=== PATIENT | male | born 1970 | race Caucasian/White ===

== ENCOUNTER 2019-01-03 15:51 | Emergency (ER) | payer BC ==
--- NOTE | 2019-01-03 16:30 | CR ---
Clinical history: 48-year-old male with cough and history of "tuberculosis". Interpretation: PA lateral chest films unremarkable. Normal cardiac silhouette without cephalization of flow, signs of alveolar edema or dependent pleural fluid accumulation. No lung mass, hilar lymphadenopathy or focal lobar pneumonia. No atelectasis/collapse. No pleural reactive abnormalities particularly in the lung apices or signs of Ghon complex. Hypertrophic marginal spondylosis at the thoracolumbar juncture. No Pneumothorax.
--- NOTE | 2019-01-03 16:51 | EDM.PDOC ---
ED HPI GENERAL MEDICAL PROBLEM - General Chief Complaint: Respiratory Problem Stated Complaint: COPD RELATED PAIN? Time Seen by Provider: 01/03/19 16:30 Source of Information: Reports: Patient, RN, RN Notes Reviewed History Limitations: Reports: No Limitations - History of Present Illness INITIAL COMMENTS - FREE TEXT/NARRATIVE: Pt presents to ER from home with c/o left posterior lower chest wall/left flank pain x4 days. He denies cough, fever, chills, abdominal pain, nausea, or urinary symptoms. He does a lot of lifting and heavy labor which causes some back pain now and then, but nothing out of the ordinary recently. He admits to some occasional hypersensitivity of the skin the in area at times, but not currently. Denies rash. He reports Hx of TB which was treated, and Hx of COPD. He is a former smoker. Onset: Sudden Onset Date: 12/30/18 Duration: Intermittent, Recurring, Waxing/Waning Location: Reports: Chest (left posterior, lower) Quality: Reports: Sharp, Stabbing Severity: Severe Improves with: Reports: None Worsens with: Reports: Movement Associated Symptoms: Reports: No Other Symptoms Left Flank Pain Score (Numeric/FACES): 7 - Related Data Allergies Allergy/AdvReac Type Severity Reaction Status Date / Time No Known Allergies Allergy Verified 02/26/16 05:51 Home Meds: Home Meds . [No Known Home Meds] 10/08/14 [History] Past Medical History - Past Health History Medical/Surgical History: Denies Medical/Surgical History HEENT History: Reports: Impaired Vision Other HEENT History: WEARS CORRECTIVE LENSES Cardiovascular History: Reports: None Respiratory History: Reports: None Gastrointestinal History: Reports: Cirrhosis, GERD, Hepatitis, Other (See Below) Other Gastrointestinal History: DSYPHAGIA Genitourinary History: Reports: None Musculoskeletal History: Reports: Back Pain, Chronic Neurological History: Reports: Concussion Psychiatric History: Reports: Addiction Endocrine/Metabolic History: Reports: None Hematologic History: Reports: None Immunologic History: Reports: None Oncologic (Cancer) History: Reports: None Dermatologic History: Reports: None - Infectious Disease History Infectious Disease History: Reports: Chicken Pox, Hepatitis C - Past Surgical History GI Surgical History: Social & Family History - Family History Family Medical History: Noncontributory - Tobacco Use Smoking Status *Q: Never Smoker Tobacco Use Within Last Twelve Months: Cigarettes - Living Situation & Occupation Living situation: Reports: Occupation: Employed ED ROS GENERAL - Review of Systems Review Of Systems: ROS reveals no pertinent complaints other than HPI. ED EXAM, GENERAL - Physical Exam Exam: See Below Exam Limited By: No Limitations General Appearance: Alert, WD/WN, No Apparent Distress Nose: Normal Inspection Throat/Mouth: Normal Inspection, Normal Voice, No Airway Compromise Head: Atraumatic, Normocephalic Neck: Normal Inspection, Supple, Non-Tender, Full Range of Motion. No: Lymphadenopathy (L), Lymphadenopathy (R) Respiratory/Chest: No Respiratory Distress, Lungs Clear, Normal Breath Sounds, No Accessory Muscle Use, Chest Non-Tender Cardiovascular: Normal Peripheral Pulses, Regular Rate, Rhythm, No Edema, No Gallop, No JVD, No Murmur, No Rub GI/Abdominal: Normal Bowel Sounds, Soft, Non-Tender, No Distention Back Exam: Normal Inspection, Full Range of Motion. No: CVA Tenderness (L), CVA Tenderness (R) Extremities: Normal Inspection, Normal Range of Motion, Non-Tender, Normal Capillary Refill, No Pedal Edema Neurological: Alert, Oriented, CN II-XII Intact, Normal Cognition, Normal Gait, No Motor/Sensory Deficits Psychiatric: Normal Mood Skin Exam: Warm, Dry, Intact, Rash (Initially there were two round/oval area of mild erythema at the left lateral chest wall which were non-tender, and had completely resolved when rechecked after 45 mins.) Course - Vital Signs Last Recorded V/S: Last Vital Signs Temp 36.7 C 01/03/19 15:55 Pulse 78 01/03/19 15:55 Resp 18 01/03/19 15:55 BP 148/84 H 01/03/19 15:55 Pulse Ox 99 01/03/19 15:55 - Orders/Labs/Meds Labs: Laboratory Tests 01/03/19 01/03/19 01/03/19 Range/Units 16:16 16:16 18:08 WBC 8.1 (5.0-10.0) 10^3/uL RBC 4.79 (4.6-6.2) 10^6/uL Hgb 16.1 (14.0-18.0) g/dL Hct 44.7 (40.0-54.0) % MCV 93.3 (80-100) fL MCH 33.6 (27.0-34.0) pg MCHC 36.0 H (33.0-35.0) g/dL Plt Count 208 (150-450) 10^3/uL Neut % (Auto) 48.6 (42.2-75.2) % Lymph % (Auto) 37.9 (20.5-50.1) % [place] % (Auto) 7.9 (2-8) % Eos % (Auto) 5.0 H (1.0-3.0) % Baso % (Auto) 0.6 (0.0-1.0) % D-Dimer, Quantitative < 100 (0-400) ng/mL Urine Color Yellow (YELLOW) Urine Appearance Clear (CLEAR) Urine pH 7.5 (5.0-9.0) Ur Specific [place] 1.015 (1.005-1.030) Urine Protein Negative (NEGATIVE) Urine Glucose (UA) Negative (NEGATIVE) Urine Ketones Negative (NEGATIVE) Urine Occult Blood Negative (NEGATIVE) Urine Nitrite Negative (NEGATIVE) Urine Bilirubin Negative (NEGATIVE) Urine Urobilinogen 1.0 (0.2-1.0) mg/dL Ur Leukocyte Esterase Negative (NEGATIVE) - Re-Assessments/Exams Free Text/Narrative Re-Assessment/Exam: 01/03/19 18:25 I find no definite cause of the pt's left thoracic/chest wall pain. His chest XR is normal, CBC is normal, and exam is benign. Give his Hx of Rt lumbar radiculopathy, I think he may be experiencing some thoracic radicular pain. Also he has been counseled to watch for development of shingles/zoster. Departure - Departure Time of Disposition: 18:27 Disposition: Home, Self-Care 01 Condition: Good Clinical Impression: Left-sided chest wall pain, Thoracic radiculopathy Acute thoracic back pain Qualifiers: Back pain laterality: left Qualified Code(s): M54.6 - Pain in thoracic spine - Discharge Information *PRESCRIPTION DRUG MONITORING PROGRAM REVIEWED*: No *COPY OF PRESCRIPTION DRUG MONITORING REPORT IN PATIENT GARRETT: No Instructions: Radicular Pain, Chest Wall Pain, [id number] Forms: ED Department Discharge Additional Instructions: Rx: Dexamethasone 4mg Follow up in clinic if a rash develops along the area of left back/chest wall pain. Follow up in clinic for recheck if not improved in 1 week, or if worse at any time.
[2019-01-03 17:37] VITALS: BP 148/84
== END 2019-01-03 18:40 | disposition home or self-care (01) ==
LOC: DL.ED 15:51
DX: R07.89 Other chest pain (principal); M54.14 Radiculopathy, thoracic region; F17.210 Nicotine dependence, cigarettes, uncomplicated
CPT/HCPCS: 36415; 71046; 81003; 85025; 85379; 99284-25

== ENCOUNTER 2020-09-27 05:56 | Day surgery (SDC) | payer BC ==
[~2020-09-27 05:56] MED LIST: Dextrose 5%-0.45% NaCl 1,000 ML IV SCH; Sodium Chloride 0.9% 10 ML Syringe FLUSH PRN
[2020-09-27] MEDS ORDERED: fentaNYL 100 MCG/2 ML SDV IV ONE ×4 (05:57→06:54)
[2020-09-27] MEDS ORDERED: Midazolam 1 MG/ML 2 ML SDV IV ONE ×7 (05:57→06:52)
[2020-09-27] MEDS ORDERED: Midazolam 1 MG/ML 2 ML SDV ONE (06:11)
[2020-09-27] MEDS ORDERED: fentaNYL 100 MCG/2 ML SDV ONE (06:11)
[2020-09-27 09:25] VITALS: BP 120/66; PULSE 58
--- NOTE | 2020-09-27 11:23 | OR ---
DATE: 09/27/2020 PROCEDURE: Total colonoscopy. INSTRUMENT USED: PCF-H190DL Olympus video colonoscope. PREMEDICATIONS: Fentanyl 125 mcg intravenous, Versed 4 mg intravenous, nasal O2 cannula. The procedure was done under pulse oximetry, BP recording, and cleaner and preparer. INDICATION: The patient with rectal bleeding. Colonoscopic examination is done for detection of any polypoid lesions and removal, endoscopic hemostasis therapy if needed. DESCRIPTION OF PROCEDURE: Initial rectal exam was unremarkable. Rigid anoscopy showed small internal hemorrhoids without bleeding from them. The colonoscope was passed with ease up to the ileocecal area. Photographs were taken of the normal-appearing cecum, identified by landmarks of appendiceal orifice and double-bulged ileocecal folds. No bleeding was noted from any of the visualized areas at the commencement of the examination. The bowel preparation was found to be adequate, [place] scale 3 in all the regions, total score 9. No stricture. No vascular ectasia. No large isolated ulcerations seen. No evidence of diffuse inflammatory bowel disease in the form of friability, contact bleeding, or ulcerations. No polyp or tumor mass identified. Probing the proximal sides of folds and flexures using adequate distention and clearing up the stool material, withdrawal of the scope was made, cecum to rectum time over 6 minutes. No bleeding was noted from any of the visualized areas at the completion of examination. IMPRESSION: Internal hemorrhoids. The patient tolerated the procedure well. [facility] /[id number]
== END 2020-09-27 09:04 | disposition home or self-care (01) ==
LOC: DL.ENDO 05:56
PROVIDERS: ATTEND Internal Medicine Gastroenterology
DX: K62.5 Hemorrhage of anus and rectum (principal); K64.8 Other hemorrhoids; K74.60 Unspecified cirrhosis of liver; Z87.891 Personal history of nicotine dependence; Z98.890 Other specified postprocedural states
CPT/HCPCS: J2250; J3010; J7042

== ENCOUNTER 2021-01-18 05:24 | Day surgery (SDC) | payer BC ==
[~2021-01-18 05:24] MED LIST changes: -Dextrose 5%-0.45% NaCl 1,000 ML IV SCH; +Midazolam 1 MG/ML 2 ML SDV ONE; -Sodium Chloride 0.9% 10 ML Syringe FLUSH PRN; +fentaNYL 100 MCG/2 ML SDV ONE
[2021-01-18] MEDS ORDERED: Midazolam 1 MG/ML 2 ML SDV IV ONE ×3 (05:25→06:38)
[2021-01-18] MEDS ORDERED: fentaNYL 100 MCG/2 ML SDV IV ONE ×3 (05:25→06:37)
[2021-01-18] MEDS ORDERED: Dextrose 5%-0.45% NaCl 1,000 ML IV SCH (06:00)
[2021-01-18] MEDS ORDERED: Sodium Chloride 0.9% 10 ML Syringe FLUSH PRN (06:00)
--- NOTE | 2021-01-18 08:44 | OR ---
DATE: 01/18/2021 PROCEDURE: Esophagogastroduodenoscopy and multiple pinch biopsies. INSTRUMENT USED: GIF-HQ190 Olympus video panendoscope. PREMEDICATIONS: No oral or topical anesthesia used. Fentanyl 100 mcg intravenous, Versed 2 mg intravenous. The procedure was done under pulse oximetry, BP recording, and cardiac cath technologist. INDICATION: The patient with known liver cirrhosis. Surveillance esophagogastroduodenoscopy is performed for detection of any varices, H pylori status to be determined, endoscopic hemostasis therapy if needed. DESCRIPTION OF PROCEDURE: The scope was passed with ease. Adequate visualization of the esophagus was made from proximal to distal areas. No upper esophageal lesions identified. No distal esophageal stricture. No uphill or downhill esophageal varices. No Beatriz-Serrato tear. No evidence of erosive esophagitis by [place] criteria. No esophageal polyp or tumor mass identified. Z-line was seen at around 40 cm distal to the oral verge. No proximal gastric varices noted. Gastric fundus examination by retroflexion showed diminutive benign-appearing polyps. No gastric ulcer, malignant mass, or vascular ectasia identified. Benign-appearing nodular duodenal bulb was noted. Visualized second part of the duodenum was unremarkable. Multiple pinch biopsies were taken from the gastric antrum and proximal body and sent for PyloriTek test for H pylori, and if negative in an hour, the tissue is to be sent for histopathology. No bleeding was noted from any of the visualized areas at the completion of examination. Photographs were taken of the duodenal bulb, gastric antrum, fundus, and distal esophagus. IMPRESSION: Diminutive gastric fundus polyps. The patient tolerated the procedure well. [facility] /[id number]
[2021-01-18 10:29] VITALS: BP 123/73; PULSE 54
== END 2021-01-18 08:47 | disposition home or self-care (01) ==
LOC: DL.ENDO 05:24
PROVIDERS: ATTEND Internal Medicine Gastroenterology
DX: K31.7 Polyp of stomach and duodenum (principal); K74.60 Unspecified cirrhosis of liver
CPT/HCPCS: 87077; J2250; J3010; J7042

== ENCOUNTER 2021-01-27 20:24 | Emergency (ER) | payer BC ==
[2021-01-27] MEDS ORDERED: Amoxicillin 500 MG Cap PO ONE ×2 (20:25→23:03)
[2021-01-27 22:23] VITALS: BP 143/83; PULSE 96
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
[2021-01-27] MEDS ORDERED: Amoxicillin 500 MG Cap ONE (23:18)
== END 2021-01-27 23:26 | disposition home or self-care (01) ==
LOC: DL.ED 20:24
DX: L03.112 Cellulitis of left axilla (principal); J44.9 Chronic obstructive pulmonary disease, unspecified; K21.9 Gastro-esophageal reflux disease without esophagitis; Z79.899 Other long term (current) drug therapy
CPT/HCPCS: 99283; A9270

== ENCOUNTER 2023-03-19 06:28 | Day surgery (SDC) | payer BC, MEDICAID ==
[~2023-03-19 06:28] MED LIST changes: +Dextrose 5%-0.45% NaCl 1,000 ML IV SCH; -Midazolam 1 MG/ML 2 ML SDV ONE; -fentaNYL 100 MCG/2 ML SDV ONE
[2023-03-19] MEDS ORDERED: fentaNYL 100 MCG/2 ML SDV ONE (07:01)
[2023-03-19] MEDS ORDERED: fentaNYL 100 MCG/2 ML SDV IV ONE ×3 (07:01→07:45)
[2023-03-19] MEDS ORDERED: Midazolam 1 MG/ML 2 ML SDV ONE (07:01)
[2023-03-19] MEDS ORDERED: Midazolam 1 MG/ML 2 ML SDV IV ONE ×3 (07:01→07:46)
[2023-03-19 09:16] VITALS: BP 143/78; PULSE 67
== END 2023-03-19 09:25 | disposition home or self-care (01) ==
LOC: DL.ENDO 06:28
PROVIDERS: ATTEND Internal Medicine Gastroenterology
DX: R13.10 Dysphagia, unspecified (principal); K29.50 Unspecified chronic gastritis without bleeding; K22.89 Other specified disease of esophagus; K74.60 Unspecified cirrhosis of liver; F41.1 Generalized anxiety disorder; J44.9 Chronic obstructive pulmonary disease, unspecified; K21.9 Gastro-esophageal reflux disease without esophagitis; F32.A Depression, unspecified; Z86.16 Personal history of COVID-19; Z90.79 Acquired absence of other genital organ(s)
CPT/HCPCS: 87077; J2250; J3010; J7042

== ENCOUNTER 2023-06-10 18:30 | Emergency (ER) | payer MEDICAID ==
[2023-06-10] MEDS ORDERED: Ketorolac 30 MG/ML SDV IM ONE (18:41)
[2023-06-10] MEDS ORDERED: Amoxicillin/Clavulanate K 875-125 MG Tab PO ONE (18:49)
[2023-06-10] MEDS ORDERED: Lidocaine 2% Jelly 10 ML Urojet MUCMEM ONE (18:50)
[2023-06-10 19:15] VITALS: BP 152/104; PULSE 80
== END 2023-06-10 19:12 | disposition home or self-care (01) ==
LOC: DL.ED 18:30
DX: K08.89 Other specified disorders of teeth and supporting structures (principal); J44.9 Chronic obstructive pulmonary disease, unspecified; Z79.899 Other long term (current) drug therapy; Z86.16 Personal history of COVID-19
CPT/HCPCS: 64400; 96372; 99282; A9270; J1885

== ENCOUNTER 2023-10-24 01:57 | Emergency (ER) | payer MEDICAID ==
[2023-10-24] MEDS: Lidocaine 1% 5 ML VIAL ONE ×2 (02:19)
[2023-10-24] MEDS: Lidocaine 1% 5 ML VIAL INJECT ONE (02:19)
[2023-10-24] MEDS: ceFAZolin 1 GM Vial IVPUSH ONE (02:25)
[2023-10-24] MEDS: fentaNYL 100 MCG/2 ML SDV ONE (02:34)
[2023-10-24] MEDS: fentaNYL 100 MCG/2 ML SDV IVPUSH ONE ×2 (02:37→05:25)
[2023-10-24 02:40] LABS: BASOPHILS PERCENT AUTO 0.7 % (0.0-1.0); EOSINOPHILS PERCENT AUTO 7.1 % (1.0-3.0); HEMATOCRIT 40.2 % (40.0-54.0); HEMOGLOBIN 14.2 g/dL (14.0-18.0); LYMPHOCYTES PERCENT AUTO 41.6 % (20.5-50.1); MEAN CORPUSCULAR HEMOGLOBIN 33.1 pg (27.0-34.0); MEAN CORPUSCULAR HGB CONC 35.3 g/dL (33.0-35.0); MEAN CORPUSCULAR VOLUME 93.7 fL (80-100); MONOCYTES PERCENT AUTO 6.7 % (2-8); NEUTROPHILS PERCENT AUTO 43.9 % (42.2-75.2); PLATELET COUNT,PLT 201 10^3/uL (150-450); RED BLOOD CELL COUNT 4.29 10^6/uL (4.6-6.2); WHITE BLOOD CELL COUNT,WBC 5.7 10^3/uL (5.0-10.0)
[2023-10-24 02:49] VITALS: BP 136/90; PULSE 87
[2023-10-24 02:56] LABS: ANION GAP 14.4 mEq/L (7-13); CALCIUM 8.2 mg/dL (8.5-10.1); CREATININE 0.87 mg/dL (0.70-1.30); EST CRCL DRUG DOSING (CG) 117.36 mL/min; POTASSIUM,K 3.4 mmol/L (3.5-5.1)
[2023-10-24] MEDS: Iopamidol 755 Mg/ML 100 ML Bottle IVPUSH ONE (03:06)
[2023-10-24] MEDS: Ondansetron 4 MG/2 ML SDV IVPUSH ONE (05:25)
== END 2023-10-24 05:54 ==
LOC: DL.ED 01:57
DX: S55.111A Laceration of radial artery at forearm level, right arm, initial encounter (principal); J44.9 Chronic obstructive pulmonary disease, unspecified; K21.9 Gastro-esophageal reflux disease without esophagitis; Z86.16 Personal history of COVID-19; Z79.899 Other long term (current) drug therapy; W25.XXXA Contact with sharp glass, initial encounter
CPT/HCPCS: 12001; 12002; 13121; 36415; 73206; 80048; 85025; 96374; 96375; 96376; 99284; 99285; J0690; J2405; J3010; Q9967; J3490

== ENCOUNTER 2025-06-02 17:31 | Emergency (ER) | payer SELFPAY ==
[2025-06-02 17:40] VITALS: BP 149/77; PULSE 83
== END 2025-06-02 17:48 | disposition home or self-care (01) ==
LOC: DL.ED 17:31
DX: K04.7 Periapical abscess without sinus (principal); J44.9 Chronic obstructive pulmonary disease, unspecified; K21.9 Gastro-esophageal reflux disease without esophagitis; Z79.899 Other long term (current) drug therapy; Z86.16 Personal history of COVID-19
CPT/HCPCS: 99282; J0665

== ENCOUNTER 2025-06-18 16:00 | Emergency (ER) | payer SELFPAY ==
[2025-06-18 16:19] VITALS: BP 149/90; PULSE 93
[2025-06-18] MEDS: Take Home: Clindamycin HCl 150 MG, 12 Cap Pack PO ONE (16:26)
== END 2025-06-18 16:30 | disposition home or self-care (01) ==
LOC: DL.ED 16:00
DX: K04.7 Periapical abscess without sinus (principal); K02.9 Dental caries, unspecified; K21.9 Gastro-esophageal reflux disease without esophagitis; Z79.899 Other long term (current) drug therapy; Z86.16 Personal history of COVID-19
CPT/HCPCS: 99282; 99283; A9270-GY